=== PATIENT | male | born 1995 | race African-American/Black ===

== ENCOUNTER 2018-03-22 01:23 | Emergency (ER) | payer SELFPAY ==
--- NOTE | 2018-03-22 02:00 | ED ---
Substance Abuse/Use - HPI Summary HPI Summary: Pt. is a 22-year-old male who presents emergency department for alcohol intoxication. He states he started drinking around 2230 tonight. Pt. reports drinking 8 shots and 2 [place] iced teas. He is a [employer] student. Pt. denies past medical history. He denies fall or head injury. Pt. states he called an uber to come the ER to be observed because he drank too much. Pt. denies other drug use. Symptoms are moderate in severity. Associated symptoms of abd. pain, N/V. No current modifying factors. - History Of Current Complaint Chief Complaint: EDSubstanceAbuse Stated Complaint: ETOH Time Seen by Provider: 03/22/18 01:58 Hx Obtained From: Patient - Allergies/Home Medications Allergies/Adverse Reactions: Allergies Allergy/AdvReac Type Severity Reaction Status Date / Time No Known Allergies Allergy Verified 03/22/18 01:26 PMH/Surg Hx/FS Hx/Imm Hx Previously Healthy: Yes Infectious Disease History: No Infectious Disease History: Denies: Traveled Outside the [place] in Last 30 Days - Family History Known Family History: Positive: Other - Noncontributory - Social History Occupation: Student Lives: With Family Alcohol Use: None Substance Use Type: Reports: None Smoking Status (MU): Never Smoked Tobacco Review of Systems Cardiovascular: Negative Respiratory: Negative Positive: Abdominal Pain, Vomiting, Nausea Musculoskeletal: Negative Neurological: Negative All Other Systems Reviewed And Are Negative: Yes Physical Exam Triage Information Reviewed: Yes Vital Signs On Initial Exam: Initial Vitals Temp Pulse Resp BP Pulse Ox 97.4 F 79 18 121/92 100 03/22/18 01:25 03/22/18 01:25 03/22/18 01:25 03/22/18 01:25 03/22/18 01:25 Vital Signs Reviewed: Yes Appearance: Positive: Well-Appearing - Pt. lying in bed with eyes closed. Answers questions appropriately. Speech is slightly slurred Skin: Positive: Warm, Dry Head/Face: Positive: Normal Head/Face Inspection Eyes: Positive: Normal, EOMI, AZEB, Conjunctiva Clear Neck: Positive: Supple Respiratory/Lung Sounds: Positive: Clear to Auscultation, Breath Sounds Present Cardiovascular: Positive: Normal, RRR Abdomen Description: Positive: Nontender, Soft Musculoskeletal: Positive: Normal, Strength/ROM Intact Neurological: Positive: Normal, Alert, Oriented to Person Place, Time, CN Intact II-III Psychiatric: Positive: Affect/Mood Appropriate - [place] Coma Scale Best Eye Response: 4 - Spontaneous Best Motor Response: 6 - Obeys Commands Best Verbal Response: 5 - Oriented Coma Scale Total: 15 Diagnostics - Vital Signs Vital Signs Temp Pulse Resp BP Pulse Ox 03/22/18 01:52 86 91 03/22/18 01:47 68 128/86 98 03/22/18 01:25 97.4 F 79 18 121/92 100 - Laboratory Lab Statement: Any lab studies that have been ordered have been reviewed, and results considered in the medical decision making process. Course/Dx - Course Course Of Treatment: Pt. presenting for alcohol intoxication, N/V. VS are stable. No signs of trauma on exam. Pt. on monitor. Will check basic labs and ETOH level. Zofran ordered. Pt. will be signed out to Dr. Rico for disposition. - Diagnoses Differential Diagnosis/HQI/PQRI: Positive: Alcohol Abuse Provider Diagnoses: Alcohol intoxication Discharge - Sign-Out/Discharge Documenting (check all that apply): Sign-Out Patient Signing out patient TO: Juan Miguel Rico - Discharge Plan Condition: Good Disposition: HOME - Billing Disposition and Condition Condition: GOOD Disposition: Home
[2018-03-22] MEDS ORDERED: Ondansetron ODT TAB* 4 MG PO ONE (02:05)
[2018-03-22 02:37] LABS: ABS Basophils 0 10^3/ul (0-0.2); ABS Eosinophils 0.1 10^3/ul (0-0.6); ABS Lymphocytes 1.3 10^3/ul (1.0-4.8); ABS Monocytes 0.4 10^3/ul (0-0.8); ABS Neutrophils 1.9 10^3/ul (1.5-7.7); ABS Nucleated RBC 0 10^3/ul; Eosinophil % 2.5 % (0-6); Hematocrit 41 % (42-52); Hemoglobin 13.6 g/dl (14.0-18.0); Lymphocyte % 35.7 % (25-47); Mean Corpuscular HGB Conc 33 g/dl (31-36); Mean Corpuscular Hemoglobin 27 pg (27-31); Mean Corpuscular Volume 81 fL (80-94); Mean Platelet Volume 8.2 um3 (7.4-10.4); Nucleated Red Blood Cells % 0.2; Platelet Count 210 10^3/ul (150-450); Red Blood Count 5.06 10^6/ul (4.00-5.40); Red Cell Distribution Width 13 % (10.5-15); White Blood Count 3.8 10^3/ul (3.5-10.8)
[2018-03-22 02:52] LABS: EGFR Non-African American 118.1 (>60)
--- NOTE | 2018-03-22 05:58 | PN ---
Progress Note - Progress Note Date of Service: 03/22/18 Note: 05:57- The pt will be discharged with a final Dx of alcohol intoxication with instructions to follow up with PCP in 3 days.
[2018-03-22 09:09] VITALS: BP 116/55
== END 2018-03-22 09:16 | disposition home or self-care (01) ==
LOC: ED 01:23
DX: F10.129 Alcohol abuse with intoxication, unspecified (principal)
CPT/HCPCS: 36415; 80053; 80320; 85025; 99284; A9270-GY; G0480